=== PATIENT | female | born 1995 | race Two or more races ===

== ENCOUNTER 2022-08-10 17:35 | Emergency (ER) | payer OTHER ==
[~2022-08-10] VITALS: Ht 170.2 cm; Wt 84.8 kg
== END 2022-08-10 22:17 | disposition home or self-care (01) ==
LOC: ER 17:35
DX: S93.402A Sprain of unspecified ligament of left ankle, initial encounter (principal); W19.XXXA Unspecified fall, initial encounter; Y93.K1 Activity, walking an animal; Y92.9 Unspecified place or not applicable; Y99.9 Unspecified external cause status